=== PATIENT | female | born 1960 | race Caucasian/White ===

== ENCOUNTER 2020-12-01 11:29 | Emergency (ER) | payer OTHER ==
[~2020-12-01] VITALS: Ht 160 cm; Wt 66.7 kg
[~2020-12-01 11:29] MED LIST: CELLCEPT500 MG PO; FLAGYL500 MG PO; HYDROCODONE-AP1 EAC6 PO; LEVAQUIN 750 M750 MG PO; SENOKOT-S1 TA2 PO; VITAMIN D2000 UNIT PO; XANAX 0.5 MG0.5 MG PO
[2020-12-01] MEDS ORDERED: TESSALON PERLE100 MG PO (12:56)
[2020-12-01 13:05] VITALS: BP 126/79
== END 2020-12-01 13:00 | disposition home or self-care (01) ==
LOC: ER 11:29
DX: R50.9 Fever, unspecified (principal); Z20.822 Contact with and (suspected) exposure to COVID-19; R05 Cough; R53.81 Other malaise; Z87.891 Personal history of nicotine dependence; Z91.030 Bee allergy status; Z88.1 Allergy status to other antibiotic agents; Z88.0 Allergy status to penicillin; Z98.890 Other specified postprocedural states; Z79.899 Other long term (current) drug therapy